=== PATIENT | male | born 1950 | race Caucasian/White ===

== ENCOUNTER → 2020-08-09 | Outpatient (CLI) | payer MEDICARE ==
[~2020-08-09] MED LIST: MULT-717 PO
[2020-08-09 11:34] LABS: MEAN CORPUSCULAR HEMOGLOBIN 30.5 pg (27.5-34.5); MEAN CORPUSCULAR HGB CONC 34.1 g/dL (33.2-36.2); MEAN PLATELET VOLUME 8.9 fL (7.4-10.4); PLATELET COUNT 186 x10^3/uL (130-400); RED CELL DISTRIBUTION WIDTH 14.5 % (9.4-14.8)
[2020-08-09 11:47] LABS: ALBUMIN 3.8 g/dL (3.4-5.0); ANION GAP 6 mmol/L (5-15); CHLORIDE 107 mmol/L (98-107)
[2020-08-09 11:52] LABS: ALANINE AMINOTRANSFERASE 37 U/L (12-78); ALKALINE PHOSPHATASE 49 U/L (45-117); BILIRUBIN,TOTAL 2.1 mg/dL (0.2-1.0); CREATININE 0.97 mg/dL (0.7-1.3); TOTAL PROTEIN 7.2 g/dL (6.4-8.2)
[2020-08-09 11:53] LABS: MD YES
[2020-08-09 12:26] LABS: <PLATELET ESTIMATE> ADEQUATE; <PLT MORPHOLOGY> NORMAL PLT MORPH; <RBC MORPHOLOGY> NORMAL; BAND#(MANUAL) 0.03 x10^3/uL; BANDS%(MANUAL) 1 % (0-7); BASOS#(MANUAL) 0.03 x10^3/uL (0-0.1); BASOS% (MANUAL) 1 % (0-1); EOS#(MANUAL) 0.06 x10^3/uL (0.0-0.4); EOS% (MANUAL) 2 % (1-7); LYMPH#(MANUAL) 1.36 x10^3/uL (1-3.4); LYMPHS% (MANUAL) 44 % (22-44); MONOS#(MANUAL) 0.12 x10^3/uL (0.3-2.7); MONOS% (MANUAL) 4 % (2-9); REACTIVE LYMPHS # (MANUAL) 0.06 x10^3/uL (0-0); REACTIVE LYMPHS % (MANUAL) 2 % (0-0); SEG#(MANUAL) 1.43 x10^3/uL (1.8-6.8); SEGS% (MANUAL) 46 % (42-75)
== END | disposition home or self-care (01) ==
LOC: STAR 10:24
PROVIDERS: ATTEND Surgery
DX: Z01.812 Encounter for preprocedural laboratory examination (principal); Z20.822 Contact with and (suspected) exposure to COVID-19; M95.4 Acquired deformity of chest and rib
CPT/HCPCS: 71046; 80053; 85025; 87635; 93005

== ENCOUNTER 2020-08-14 17:29 | Emergency (ER) | payer MEDICARE ==
[~2020-08-14] VITALS: Ht 188 cm; Wt 91.4 kg
--- NOTE | 2020-08-14 18:09 | NUR ---
Pt ambulating to bathroom- equal, steady gait.
--- NOTE | 2020-08-14 18:36 | NUR ---
Pt only able to urinate a small amount. 18 fr silveira catheter inserted- 1400mL out initially of dark yellow urine.
--- NOTE | 2020-08-14 18:37 | NUR ---
Lab at bedside.
[2020-08-14 18:48] LABS: MICROSCOPIC NOT IND
[2020-08-14 18:49] LABS: RED CELL DISTRIBUTION WIDTH 14.3 % (9.4-14.8)
[2020-08-14 18:57] LABS: ALBUMIN 3.8 g/dL (3.4-5.0); ANION GAP 7 mmol/L (5-15); CALCIUM 9.1 mg/dL (8.5-10.1); CHLORIDE 105 mmol/L (98-107)
[2020-08-14 18:58] LABS: CREATININE 1.13 mg/dL (0.7-1.3)
[2020-08-14 19:00] LABS: MEAN CORPUSCULAR HEMOGLOBIN 30.4 pg (27.5-34.5); MEAN CORPUSCULAR HGB CONC 34.1 g/dL (33.2-36.2); MEAN PLATELET VOLUME 8.7 fL (7.4-10.4); PLATELET COUNT 187 x10^3/uL (130-400); RED BLOOD COUNT 4.87 x10^6/uL (4.38-5.82)
[2020-08-14 19:12] LABS: MD YES
[2020-08-14 19:20] LABS: LYMPH#(MANUAL) 1.34 x10^3/uL (1-3.4); LYMPHS% (MANUAL) 22 % (22-44); SEG#(MANUAL) 4.76 x10^3/uL (1.8-6.8); SEGS% (MANUAL) 78 % (42-75)
[2020-08-14 19:21] LABS: <PLATELET ESTIMATE> ADEQUATE; <PLT MORPHOLOGY> NORMAL PLT MORPH; <RBC MORPHOLOGY> NORMAL
[2020-08-14 19:47] VITALS: BP 124/62
--- NOTE | 2020-08-14 19:48 | NUR ---
Total of 1700 mL urine output during pt's time in ED today.
--- NOTE | 2020-08-14 19:49 | NUR ---
Provided and instructed pt on leg bag use.
== END 2020-08-14 20:20 | disposition home or self-care (01) ==
LOC: ED 19:34
DX: R33.9 Retention of urine, unspecified (principal); Z87.891 Personal history of nicotine dependence
CPT/HCPCS: 36415; 51702; 80048; 81003; 82040; 85025; 99284

== ENCOUNTER 2020-08-17 14:10 | Emergency (ER) | payer MEDICARE ==
[~2020-08-17] VITALS: Ht 188 cm; Wt 89.4 kg
--- NOTE | 2020-08-17 14:27 | NUR ---
PT STATES HE HAD URINARY CATH TAKEN OUT TODAY AT 0900 AND HAS BEEN UNABLE TO URINATE SINCE. C/O OF ABD DISTENTION, PAIN, AND URGENCY.
[2020-08-17] MEDS ORDERED: LIDOCAINE 2%,20 ML JEL.PF.APP MM ONE ×2 (14:37→15:00)
--- NOTE | 2020-08-17 14:53 | NUR ---
14 Fr. coude tip Kapadia cath inserted per MD order.
[2020-08-17 15:25] LABS: MICROSCOPIC AUTO
--- NOTE | 2020-08-17 15:30 | NUR ---
PT RESTING COMFORTABLY. NO NEEDS AT THIS TIME. EDP TO RECHECK
[2020-08-17 16:43] VITALS: BP 145/90
== END 2020-08-17 16:55 | disposition home or self-care (01) ==
LOC: ED 16:48
DX: R33.9 Retention of urine, unspecified (principal); R10.30 Lower abdominal pain, unspecified
CPT/HCPCS: 51702; 81001; 99284

== ENCOUNTER 2020-09-22 20:02 | Emergency (ER) | payer MEDICARE ==
[~2020-09-22] VITALS: Ht 188 cm; Wt 89.0 kg
--- NOTE | 2020-09-22 21:09 | NUR ---
DUC BENOIT FROM [facility] AT THIS TIME. PT RESTING ON LEANN POSADAS.
[2020-09-22 21:15] LABS: MEAN CORPUSCULAR HEMOGLOBIN 30.3 pg (27.5-34.5); MEAN CORPUSCULAR HGB CONC 33.9 g/dL (33.2-36.2); MEAN PLATELET VOLUME 8.6 fL (7.4-10.4); PLATELET COUNT 181 x10^3/uL (130-400); RED BLOOD COUNT 4.32 x10^6/uL (4.38-5.82); RED CELL DISTRIBUTION WIDTH 14.1 % (9.4-14.8)
[2020-09-22 21:19] LABS: ALANINE AMINOTRANSFERASE 25 U/L (12-78); ALBUMIN 3.1 g/dL (3.4-5.0); ANION GAP 5 mmol/L (5-15); CALCIUM 8.5 mg/dL (8.5-10.1); CHLORIDE 104 mmol/L (98-107); CREATININE 0.89 mg/dL (0.7-1.3)
[2020-09-22 21:22] LABS: ALKALINE PHOSPHATASE 48 U/L (45-117); BILIRUBIN,TOTAL 1.5 mg/dL (0.2-1.0); TOTAL PROTEIN 6.3 g/dL (6.4-8.2)
[2020-09-22 21:34] LABS: MD YES
[2020-09-22 21:54] LABS: <PLATELET ESTIMATE> ADEQUATE; <PLT MORPHOLOGY> NORMAL PLT MORPH; <RBC MORPHOLOGY> NORMAL; BASOS#(MANUAL) 0.08 x10^3/uL (0-0.1); BASOS% (MANUAL) 1 % (0-1); LYMPH#(MANUAL) 1.34 x10^3/uL (1-3.4); LYMPHS% (MANUAL) 16 % (22-44); MONOS#(MANUAL) 1.09 x10^3/uL (0.3-2.7); MONOS% (MANUAL) 13 % (2-9); SEG#(MANUAL) 5.88 x10^3/uL (1.8-6.8); SEGS% (MANUAL) 70 % (42-75)
[2020-09-22] MEDS ORDERED: LIDOCAINE 2%,20 ML JEL.PF.APP MM ONE ×2 (22:20→23:00)
[2020-09-22 22:24] VITALS: BP 117/58
--- NOTE | 2020-09-22 22:54 | NUR ---
XAVIER INSERTED PER PROTOCOL, PT TOLERATED WELL, DRAINING CLEAR YELLOW URINE WITHOUT DIFFICULTY AT THIS TIME.
[2020-09-22 23:03] LABS: MICROSCOPIC NOT IND
--- NOTE | 2020-09-22 23:54 | NUR ---
Patient/Caregiver given discharge instructions and they have confirmed that they understand the instructions. Patient ambulatory with steady gait.
== END 2020-09-23 00:01 | disposition home or self-care (01) ==
LOC: ED 09-23
DX: N40.1 Benign prostatic hyperplasia with lower urinary tract symptoms (principal); R33.8 Other retention of urine
CPT/HCPCS: 36415; 51702; 80053; 81003; 85025; 99284

== ENCOUNTER → 2021-03-18 | Outpatient (CLI) | payer MEDICARE | END | disposition home or self-care (01) | LOC: RAD 13:48 | PROVIDERS: ATTEND Student in an Organized Health Care Education/Training Program | DX: K43.9 Ventral hernia without obstruction or gangrene (principal); R10.9 Unspecified abdominal pain | CPT/HCPCS: 76700 ==